=== PATIENT | female | born 1940 | race Caucasian/White ===

== ENCOUNTER 2022-12-02 12:06 | Inpatient (IN) | payer MEDICARE ==
[~2022-12-02] VITALS: Ht 154.9 cm; Wt 55.5 kg
[2022-12-02 13:35] LABS: BASOPHILS % (AUTO) 0.5 % (0-1); EOSINOPHILS % (AUTO) 0.9 % (0-6); HEMATOCRIT 27.3 % (35.0-45.0); HEMOGLOBIN 8.7 g/dl (12.0-16.0); LYMPHOCYTES # (AUTO) 1.1 X10'3 (1.1-4.8); LYMPHOCYTES % (AUTO) 20.7 % (21-51); MEAN CORPUSCULAR HEMOGLOBIN 24.7 PG (27.0-31.0); MEAN CORPUSCULAR HGB CONC 31.8 g/dL (33.0-36.5); MEAN CORPUSCULAR VOLUME 77.9 FL (78-98); MONOCYTES # (AUTO) 0.7 X10'3 (0-0.9); NEUTROPHILS # (AUTO) 3.7 X10'3 (1.8-7.7); NEUTROPHILS % (AUTO) 65.9 % (42-75); PLATELET COUNT 371 X10'3 (140-440); RED CELL DISTRIBUTION WIDTH 15.4 % (11.5-14.5); WHITE BLOOD COUNT 5.5 X10'3 (4.5-11.0)
[2022-12-02 13:45] LABS: ALANINE AMINOTRANSFERASE 19 U/L (12-78); ALBUMIN 3.2 G/DL (3.4-5.0); ALKALINE PHOSPHATASE 79 IU/L (46-116); ANION GAP 9 (8-16); ASPARTATE AMINO TRANSFERASE 21 U/L (10-37); BILIRUBIN,TOTAL 0.5 MG/DL (0.1-1.0); BLOOD UREA NITROGEN 20 MG/DL (7-18); CALCIUM 8.7 MG/DL (8.5-10.1); CHLORIDE 106 MMOL/L (99-107); CREATININE 0.91 MG/DL (0.40-0.90); GLUCOSE 94 MG/DL (70-104); POTASSIUM 3.6 MMOL/L (3.5-5.1); SODIUM 142 MMOL/L (135-145); TOTAL CARBON DIOXIDE 27.4 MMOL/L (24-32); TOTAL PROTEIN 6.4 G/DL (6.4-8.2); eGFR 59 ML/MIN
[2022-12-02] MEDS ORDERED: magnesium 2GM in 50ml NS 50 ML IV PRN (14:00)
[2022-12-02] MEDS ORDERED: acetaminophen 325mg tablet PO PRN ×2 (14:00)
[2022-12-02] MEDS ORDERED: potassium Cl 20 mEq SR tablet PO PRN ×2 (14:00)
[2022-12-02] MEDS ORDERED: potassium Cl 40MEQ/1/2NS 520ml 520 ML IV PRN (14:00)
[2022-12-02] MEDS ORDERED: magnesium 4gm in 100ml NS 100 ML IV PRN (14:00)
[2022-12-02] MEDS ORDERED: magnesium Cl slow-release 64mg tablet PO PRN (14:00)
[2022-12-02] MEDS ORDERED: ondansetron/PF 4mg/2ml inj IV PRN (14:00)
[2022-12-02] MEDS: normal saline 1000ml 1,000 ML IV SCH (15:13)
[2022-12-02] MEDS: pantoprazole 40MG/NS 100ML BAG 100 ML IV SCH ×2 (15:19→19:46)
--- NOTE | 2022-12-02 15:34 | NUR ---
RN gave nurse report to STEFANIE Grissom. Pt stable. VS WNL. Pt will transfer to [facility] 3015 A.
--- NOTE | 2022-12-02 15:35 | NUR ---
Patient in room PCU 3019B. I have received report from STEFANIE RANKIN FROM ER and had the opportunity to ask questions and assume patient care.
[2022-12-02 16:00] VITALS: BP 148/55
[2022-12-02] MEDS ORDERED: pantoprazole 40MG/NS 100ML BAG 100 ML IV SCH (16:00)
[2022-12-02] MEDS ORDERED: VERA240T92 PO (16:55)
[2022-12-02] MEDS ORDERED: OMEP20CA16 PO (16:55)
[2022-12-02] MEDS ORDERED: LISI1TAB51 PO (16:55)
[2022-12-02] MEDS ORDERED: RIVA2.5T PO (16:55)
[2022-12-02] MEDS ORDERED: LEVO25TA7 PO (16:55)
[2022-12-02] MEDS ORDERED: SERT-433 PO (16:55)
[2022-12-02] MEDS ORDERED: OMEG-167 PO (16:58)
[2022-12-02] MEDS ORDERED: CHOL500050 PO (16:58)
[2022-12-02] MEDS ORDERED: MULT-1180 PO (16:58)
[2022-12-02 18:00] VITALS: BP 128/53
--- NOTE | 2022-12-02 18:10 | NUR ---
Patient in room PCU 3016. I have received report from [email or web address] and had the opportunity to ask questions and assume patient care.
--- NOTE | 2022-12-02 18:37 | NUR ---
Problems reprioritized. Patient report given, questions answered & plan of care reviewed with STEFANIE YU.
[2022-12-02] MEDS: K and/or MAG REPLACEMENT MC SCH (20:00)
[2022-12-02] MEDS ORDERED: temazepam 15mg capsule PO PRN (21:00)
[2022-12-02 22:00] VITALS: BP 124/51
[2022-12-03] VITALS (7 sets, daily range): BP systolic 130–157; BP diastolic 53–71
[2022-12-03] MEDS: pantoprazole 40MG/NS 100ML BAG 100 ML IV SCH ×4 (00:52→16:00)
[2022-12-03] MEDS: normal saline 1000ml 1,000 ML IV SCH (03:59)
--- NOTE | 2022-12-03 06:40 | NUR ---
Problems reprioritized. Patient report given, questions answered & plan of care reviewed with STEFANIE Parr.
--- NOTE | 2022-12-03 07:03 | NUR ---
Patient in room PCU 3016. I have received report from GIGI WATTS and had the opportunity to ask questions and assume patient care.
[2022-12-03 07:39] LABS: BASOPHILS % (AUTO) 0.5 % (0-1); EOSINOPHILS # (AUTO) 0.1 X10'3 (0-0.9); EOSINOPHILS % (AUTO) 2.2 % (0-6); HEMATOCRIT 26.4 % (35.0-45.0); HEMOGLOBIN 8.4 g/dl (12.0-16.0); LYMPHOCYTES # (AUTO) 1.6 X10'3 (1.1-4.8); LYMPHOCYTES % (AUTO) 29.3 % (21-51); MEAN CORPUSCULAR HGB CONC 31.8 g/dL (33.0-36.5); MEAN CORPUSCULAR VOLUME 78.7 FL (78-98); MEAN PLATELET VOLUME 7.5 FL (7.4-10.4); MONOCYTES # (AUTO) 0.6 X10'3 (0-0.9); MONOCYTES % (AUTO) 10.2 % (2-12); NEUTROPHILS # (AUTO) 3.2 X10'3 (1.8-7.7); NEUTROPHILS % (AUTO) 57.8 % (42-75); PLATELET COUNT 350 X10'3 (140-440); RED BLOOD COUNT 3.35 X10'6 (4.20-5.60); RED CELL DISTRIBUTION WIDTH 15.2 % (11.5-14.5); WHITE BLOOD COUNT 5.6 X10'3 (4.5-11.0)
[2022-12-03] MEDS ORDERED: fentaNYL/PF 50MCG/1 ML 2ML syringe ONE (07:51)
[2022-12-03] MEDS ORDERED: MIDAZolam 1 MG/ML 5ML VIAL ONE (07:51)
[2022-12-03] MEDS ORDERED: LIDOcaine Viscous 15ml cup ONE (07:52)
[2022-12-03] MEDS: K and/or MAG REPLACEMENT MC SCH (08:00)
[2022-12-03 08:01] LABS: ALANINE AMINOTRANSFERASE 16 U/L (12-78); ALBUMIN 2.9 G/DL (3.4-5.0); ALBUMIN/GLOBULIN RATIO 0.9 (1.1-1.5); ANION GAP 9 (8-16); ASPARTATE AMINO TRANSFERASE 20 U/L (10-37); BILIRUBIN,TOTAL 0.3 MG/DL (0.1-1.0); BLOOD UREA NITROGEN 13 MG/DL (7-18); BUN/CREATININE RATIO 16.3 (10.0-20.0); CALCIUM 8.5 MG/DL (8.5-10.1); CHLORIDE 107 MMOL/L (99-107); GLUCOSE 93 MG/DL (70-104); POTASSIUM 3.5 MMOL/L (3.5-5.1); SODIUM 140 MMOL/L (135-145); TOTAL CARBON DIOXIDE 24.4 MMOL/L (24-32); eGFR 69 ML/MIN
[2022-12-03 08:36] LABS: ALKALINE PHOSPHATASE 66 IU/L (46-116)
[2022-12-03 15:42] LABS: BASOPHILS % (AUTO) 0.6 % (0-1); EOSINOPHILS # (AUTO) 0.1 X10'3 (0-0.9); EOSINOPHILS % (AUTO) 1.7 % (0-6); HEMATOCRIT 23.7 % (35.0-45.0); HEMOGLOBIN 7.5 g/dl (12.0-16.0); LYMPHOCYTES # (AUTO) 1.1 X10'3 (1.1-4.8); LYMPHOCYTES % (AUTO) 20.4 % (21-51); MEAN CORPUSCULAR HEMOGLOBIN 24.8 PG (27.0-31.0); MEAN CORPUSCULAR HGB CONC 31.8 g/dL (33.0-36.5); MONOCYTES # (AUTO) 0.6 X10'3 (0-0.9); MONOCYTES % (AUTO) 10.3 % (2-12); NEUTROPHILS # (AUTO) 3.7 X10'3 (1.8-7.7); PLATELET COUNT 328 X10'3 (140-440); RED BLOOD COUNT 3.04 X10'6 (4.20-5.60); RED CELL DISTRIBUTION WIDTH 15.1 % (11.5-14.5); WHITE BLOOD COUNT 5.5 X10'3 (4.5-11.0)
[2022-12-03] MEDS ORDERED: FERR324T4 PO (16:23)
[2022-12-03] MEDS ORDERED: OMEP20CA16 PO (16:25)
--- NOTE | 2022-12-03 17:58 | NUR ---
patient went for EGD, see results in chart. seen by Dr dutton is for DC. All dc instructions given to patient and daughter . Patient DC via private car with daughter in stable condition
== END 2022-12-03 15:46 | disposition home or self-care (01) | DRG 378 ==
LOC: ER 12:06 → ED HOLD 14:03 → PCU 3S 15:57
PROVIDERS: ADMIT Internal Medicine; ATTEND Internal Medicine
DX: K29.71 Gastritis, unspecified, with bleeding (principal); D68.59 Other primary thrombophilia; I48.20 Chronic atrial fibrillation, unspecified; K57.90 Diverticulosis of intestine, part unspecified, without perforation or abscess without bleeding; G62.9 Polyneuropathy, unspecified; D64.9 Anemia, unspecified; Z79.01 Long term (current) use of anticoagulants; Z79.82 Long term (current) use of aspirin; Z85.41 Personal history of malignant neoplasm of cervix uteri; Z91.040 Latex allergy status; Z91.048 Other nonmedicinal substance allergy status; Z79.899 Other long term (current) drug therapy
CPT/HCPCS: 36415; 43239; 71045; 80053; 83605; 85025; 85610; 86885; 86900; 86901; 87040; 88305; 93005; 97161; 97530; 99152; 99285; A4620; C9113; G0378; J2250; J3010; J7030